=== PATIENT | male | born 1955 | race African-American/Black ===

== ENCOUNTER 2023-03-06 12:51 | Inpatient (IN) | payer MEDICARE ==
[~2023-03-06 12:51] MED LIST: Iopamidol 300 61% 100 ML VIAL FS ONE
[2023-03-06 14:40] LABS: ALT (SGPT) 15 U/L (8-55); AST (SGOT) 77 U/L (5-34); Acetaminophen Less than 10.0 mcg/mL (10.0-30.0); Albumin 4.2 g/dL (3.4-4.8); Alcohol Less than 10 mg/dL (Less than 10); Alkaline Phosphatase 118 U/L (40-110); Anion Gap 26 mmol/L (10-20); BUN (Urea Nitrogen) 11 mg/dL (8.4-25.7); Bilirubin, Total 1.7 mg/dL (0.2-1.2); Calc. Creatinine Clearance 0 mL/min (70-130); Calcium 8.5 mg/dL (7.8-10.44); Carbon Dioxide 29 mmol/L (23-31); Chloride 86 mmol/L (98-107); Estimated GFR 70; Globulin 3.4 g/dL (2.4-3.5); Glucose 109 mg/dL (80-115); Magnesium 1.2 mg/dL (1.6-2.6); Potassium 2.7 mmol/L (3.5-5.1); Protein, Total 7.6 g/dL (5.8-8.1); Salicylate Less than 8.0 mg/dL (15.0-30.0); Sodium 138 mmol/L (136-145)
[2023-03-06 14:52] LABS: Hemoglobin 9.9 g/dL (13.5-17.5); Mean Corpuscular HGB CONC 33.2 g/dL (32.0-36.0); Mean Corpuscular Hemoglobin 25.4 pg (27.0-33.0); Mean Corpuscular Volume 76.4 fl (81.2-95.1); Mean Platelet Volume 8.8 fl (7.4-10.4); Platelet Count 185 10x3/uL (150-450); RBC Distribution Width 15.2 % (11.5-14.5); White Blood Cell (WBC) Count 5.7 10x3/uL (3.5-10.5)
[2023-03-06 15:12] LABS: Band 6 % (5-11); Lymphocytes 23 % (21-51); Monocytes 14 % (0-10); Nucleated RBC (Manual Ct) 1 % (0); Reactive Lymphocytes 1 % (0-10)
[2023-03-06 15:13] LABS: Hypochromia SLIGHT = 6-15 cells (100X) (0-5/hpf); Neutrophil 54 % (42-75); Target Cells SLIGHT = 2-5 cells (100X) (0-1/hpf)
[2023-03-06] MEDS ORDERED: Lorazepam 2 MG/ML VIAL ONE ×2 (15:13→18:18)
[2023-03-06] MEDS ORDERED: Magnesium 2 GM/50 ML BAG (IN WATER) ONE ×2 (15:13→18:18)
[2023-03-06 15:14] LABS: Anisocytosis SLIGHT = 6-15 cells (100X) (0-5/hpf); Microcytosis SLIGHT = 6-15 cells (100X) (0-5/hpf)
[2023-03-06 15:15] LABS: Platelet Morphology Comment Appears Adequate
[2023-03-06 15:16] LABS: Pappenheimer Bodies SLIGHT = 1-2 cells (100X) (None Seen)
[2023-03-06 15:17] LABS: Tear Drops SLIGHT = 2-5 cells (100X) (0-1/hpf)
[2023-03-06 15:18] LABS: MDiff Complete? YES
[2023-03-06] MEDS ORDERED: Ondansetron ODT 4 MG TAB PO PRN (17:15)
[2023-03-06] MEDS ORDERED: Lorazepam 1 MG TAB PO PRN (17:15)
[2023-03-06] MEDS ORDERED: Lorazepam 2 MG/ML VIAL IM PRN (17:15)
[2023-03-06] MEDS ORDERED: Electrolyte Replacement Protocol 1 EACH FS SCH (17:15)
[2023-03-06 17:54] LABS: Troponin I 0.107 ng/mL (< 0.028)
[2023-03-06] MEDS ORDERED: Magnesium 2 GM/50 ML(in water) 2 GM in Premix Bag 1 BAG IVPB SCH (18:00)
[2023-03-06] MEDS ORDERED: Thiamine HCl 200 MG/2 ML VIAL ONE (18:17)
[2023-03-06] MEDS ORDERED: Potassium Chloride 20 MEQ TAB ONE (18:17)
[2023-03-06] MEDS: Lorazepam 1 MG TAB PO SCH ×2 (18:25→23:17)
[2023-03-06] MEDS: Thiamine HCl 200 MG/2 ML VIAL SLOW IVP SCH (18:25)
[2023-03-06] MEDS: Potassium Chloride 20 MEQ TAB PO SCH ×2 (18:26→22:07)
[2023-03-06 22:49] VITALS: BMI 24.5
[2023-03-07 05:25] LABS: Hemoglobin 9.2 g/dL (13.5-17.5); Mean Corpuscular HGB CONC 32.5 g/dL (32.0-36.0); Mean Corpuscular Volume 76.9 fl (81.2-95.1); Mean Platelet Volume 9.5 fl (7.4-10.4); Platelet Count 170 10x3/uL (150-450); RBC Distribution Width 15.2 % (11.5-14.5); Red Blood Cell (RBC) Count 3.68 10x6/uL (4.32-5.72); White Blood Cell (WBC) Count 4.5 10x3/uL (3.5-10.5)
[2023-03-07] MEDS: Lorazepam 1 MG TAB PO SCH ×4 (05:26→23:07)
[2023-03-07 05:30] LABS: ALT (SGPT) 11 U/L (8-55); AST (SGOT) 50 U/L (5-34); Albumin 3.5 g/dL (3.4-4.8); Alkaline Phosphatase 97 U/L (40-110); Anion Gap 18 mmol/L (10-20); BUN (Urea Nitrogen) 10 mg/dL (8.4-25.7); Bilirubin, Total 1.2 mg/dL (0.2-1.2); Calc. Creatinine Clearance 76 mL/min (70-130); Calcium 8.1 mg/dL (7.8-10.44); Carbon Dioxide 32 mmol/L (23-31); Chloride 90 mmol/L (98-107); Estimated GFR 77; Globulin 2.9 g/dL (2.4-3.5); Glucose 140 mg/dL (80-115); Potassium 3.4 mmol/L (3.5-5.1); Protein, Total 6.4 g/dL (5.8-8.1); Sodium 137 mmol/L (136-145)
[2023-03-07 05:49] LABS: MDiff Complete? YES
[2023-03-07 05:54] LABS: Eosinophils 3 % (0-10); Lymphocytes 23 % (21-51); Monocytes 19 % (0-10); Neutrophil 55 % (42-75)
[2023-03-07 05:55] LABS: Anisocytosis SLIGHT = 6-15 cells (100X) (0-5/hpf)
[2023-03-07 05:56] LABS: Hypochromia MODERATE=16-30 cells (100X) (0-5/hpf); Microcytosis SLIGHT = 6-15 cells (100X) (0-5/hpf); Platelet Morphology Comment Appears Adequate; Target Cells SLIGHT = 2-5 cells (100X) (0-1/hpf); Tear Drops SLIGHT = 2-5 cells (100X) (0-1/hpf)
[2023-03-07] MEDS ORDERED: Magnesium 2 GM/50 ML(in water) 2 GM in Premix Bag 1 BAG IVPB SCH (06:00)
[2023-03-07] MEDS ORDERED: Potassium Chloride 20 MEQ TAB PO SCH (08:00)
[2023-03-07] MEDS: Folic Acid 1 MG TAB PO SCH (08:09)
[2023-03-07] MEDS: Multivit, Therapeutic 1 TAB PO SCH (08:09)
[2023-03-07] MEDS: PHOS-NAK 1 PKT PACK PO SCH ×2 (08:09→11:54)
[2023-03-07 09:14] LABS: Troponin I 0.091 ng/mL (< 0.028)
[2023-03-07] MEDS: Thiamine HCl 200 MG/2 ML VIAL SLOW IVP SCH (17:05)
[2023-03-07] MEDS ORDERED: Lorazepam 1 MG TAB PO PRN (17:16)
[2023-03-07] MEDS: Simvastatin 10 MG TAB PO SCH (21:15)
[2023-03-08 04:30] LABS: Hemoglobin 9.8 g/dL (13.5-17.5); Mean Corpuscular HGB CONC 32.7 g/dL (32.0-36.0); Mean Corpuscular Volume 76.5 fl (81.2-95.1); Mean Platelet Volume 9.4 fl (7.4-10.4); Platelet Count 199 10x3/uL (150-450); RBC Distribution Width 15.4 % (11.5-14.5); Red Blood Cell (RBC) Count 3.92 10x6/uL (4.32-5.72); White Blood Cell (WBC) Count 4.5 10x3/uL (3.5-10.5)
[2023-03-08 04:42] LABS: ALT (SGPT) 10 U/L (8-55); AST (SGOT) 53 U/L (5-34); Albumin 3.6 g/dL (3.4-4.8); Alkaline Phosphatase 94 U/L (40-110); Anion Gap 17 mmol/L (10-20); BUN (Urea Nitrogen) 7 mg/dL (8.4-25.7); Bilirubin, Total 1.1 mg/dL (0.2-1.2); Calc. Creatinine Clearance 90 mL/min (70-130); Calcium 8.8 mg/dL (7.8-10.44); Carbon Dioxide 31 mmol/L (23-31); Chloride 92 mmol/L (98-107); Estimated GFR 93; Glucose 113 mg/dL (80-115); Magnesium 1.8 mg/dL (1.6-2.6); Phosphorus 2.3 mg/dL (2.3-4.7); Potassium 3.8 mmol/L (3.5-5.1); Protein, Total 6.6 g/dL (5.8-8.1); Sodium 136 mmol/L (136-145)
[2023-03-08] MEDS: Lorazepam 1 MG TAB PO SCH ×3 (05:01→17:55)
[2023-03-08 05:06] LABS: Iron 49 ug/dL (65-175); Iron Binding Capacity, Total 173 mcg/dL (261-462)
[2023-03-08 05:12] LABS: MDiff Complete? YES
[2023-03-08 05:16] LABS: Band 2 % (5-11); Eosinophils 1 % (0-10); Lymphocytes 33 % (21-51); Monocytes 17 % (0-10); Neutrophil 47 % (42-75)
[2023-03-08 05:17] LABS: Hypochromia SLIGHT = 6-15 cells (100X) (0-5/hpf); Platelet Morphology Comment Appears Adequate
[2023-03-08] MEDS ORDERED: Magnesium 2 GM/50 ML(in water) 2 GM in Premix Bag 1 BAG IVPB SCH (09:00)
[2023-03-08] MEDS: Folic Acid 1 MG TAB PO SCH (09:21)
[2023-03-08] MEDS: Losartan Potassium 50 MG TAB PO SCH (09:21)
[2023-03-08] MEDS: Amlodipine 10 MG TAB PO SCH (09:21)
[2023-03-08] MEDS: Multivit, Therapeutic 1 TAB PO SCH (09:21)
[2023-03-08] MEDS ORDERED: Lorazepam 1 MG TAB PO PRN (17:16)
[2023-03-08] MEDS: Thiamine HCl 200 MG/2 ML VIAL SLOW IVP SCH (17:53)
[2023-03-08] MEDS: Lorazepam 0.5 MG TAB PO SCH ×2 (17:57→23:28)
[2023-03-08] MEDS: Simvastatin 10 MG TAB PO SCH (20:20)
[2023-03-09] MEDS: Lorazepam 0.5 MG TAB PO SCH ×2 (05:14→16:44)
[2023-03-09 05:24] LABS: Hemoglobin 9.7 g/dL (13.5-17.5); Mean Corpuscular HGB CONC 32.4 g/dL (32.0-36.0); Mean Corpuscular Volume 77.1 fl (81.2-95.1); Mean Platelet Volume 9.3 fl (7.4-10.4); Platelet Count 216 10x3/uL (150-450); RBC Distribution Width 15.5 % (11.5-14.5); Red Blood Cell (RBC) Count 3.88 10x6/uL (4.32-5.72); White Blood Cell (WBC) Count 4.6 10x3/uL (3.5-10.5)
[2023-03-09 05:25] LABS: MDiff Complete? YES
[2023-03-09 05:53] LABS: ALT (SGPT) 19 U/L (8-55); AST (SGOT) 102 U/L (5-34); Albumin 3.5 g/dL (3.4-4.8); Alkaline Phosphatase 100 U/L (40-110); Anion Gap 17 mmol/L (10-20); BUN (Urea Nitrogen) 8 mg/dL (8.4-25.7); Calc. Creatinine Clearance 68 mL/min (70-130); Carbon Dioxide 29 mmol/L (23-31); Chloride 95 mmol/L (98-107); Estimated GFR 67; Glucose 113 mg/dL (80-115); Magnesium 2.1 mg/dL (1.6-2.6); Potassium 3.1 mmol/L (3.5-5.1); Protein, Total 6.5 g/dL (5.8-8.1); Sodium 138 mmol/L (136-145)
[2023-03-09 05:58] LABS: Eosinophils 2 % (0-10); Lymphocytes 37 % (21-51); Monocytes 15 % (0-10); Neutrophil 45 % (42-75)
[2023-03-09 05:59] LABS: Anisocytosis SLIGHT = 6-15 cells (100X) (0-5/hpf); Hypochromia SLIGHT = 6-15 cells (100X) (0-5/hpf); Platelet Morphology Comment Appears Adequate; Polychromasia SLIGHT = 2-3 cells (100X) (0-2/hpf); Target Cells SLIGHT = 2-5 cells (100X) (0-1/hpf)
[2023-03-09 06:00] LABS: Ovalocytes SLIGHT = 2-5 cells (100X) (0-1/hpf)
[2023-03-09] MEDS ORDERED: Sodium Chloride 0.9% 500 ML IV SCH ×2 (07:45→11:45)
[2023-03-09] MEDS ORDERED: Potassium Chloride 20 MEQ TAB PO SCH (09:00)
[2023-03-09] MEDS: Losartan Potassium 50 MG TAB PO SCH (09:03)
[2023-03-09] MEDS: Amlodipine 10 MG TAB PO SCH (09:03)
[2023-03-09] MEDS: Folic Acid 1 MG TAB PO SCH (09:03)
[2023-03-09] MEDS: Multivit, Therapeutic 1 TAB PO SCH (09:03)
[2023-03-09] MEDS: Sodium Chloride 0.9% 1,000 ML IV SCH ×2 (12:47→23:00)
[2023-03-09] MEDS: Thiamine 100 MG TAB PO SCH (16:44)
[2023-03-09] MEDS ORDERED: Lorazepam 0.5 MG TAB PO PRN (17:16)
[2023-03-09] MEDS: Simvastatin 10 MG TAB PO SCH (21:31)
[2023-03-10 04:46] LABS: Hemoglobin 9.1 g/dL (13.5-17.5); Mean Corpuscular HGB CONC 31.9 g/dL (32.0-36.0); Mean Corpuscular Hemoglobin 24.7 pg (27.0-33.0); Mean Corpuscular Volume 77.4 fl (81.2-95.1); Mean Platelet Volume 8.9 fl (7.4-10.4); Platelet Count 249 10x3/uL (150-450); Red Blood Cell (RBC) Count 3.68 10x6/uL (4.32-5.72); White Blood Cell (WBC) Count 4.4 10x3/uL (3.5-10.5)
[2023-03-10 04:47] LABS: MDiff Complete? YES
[2023-03-10 05:01] LABS: ALT (SGPT) 26 U/L (8-55); AST (SGOT) 117 U/L (5-34); Albumin 3.3 g/dL (3.4-4.8); Alkaline Phosphatase 86 U/L (40-110); Anion Gap 15 mmol/L (10-20); BUN (Urea Nitrogen) 7 mg/dL (8.4-25.7); Bilirubin, Total 0.7 mg/dL (0.2-1.2); Calc. Creatinine Clearance 79 mL/min (70-130); Calcium 8.5 mg/dL (7.8-10.44); Carbon Dioxide 25 mmol/L (23-31); Chloride 103 mmol/L (98-107); Estimated GFR 81; Globulin 2.8 g/dL (2.4-3.5); Glucose 114 mg/dL (80-115); Potassium 3.4 mmol/L (3.5-5.1); Protein, Total 6.1 g/dL (5.8-8.1); Sodium 140 mmol/L (136-145)
[2023-03-10 05:36] LABS: Anisocytosis SLIGHT = 6-15 cells (100X) (0-5/hpf); Eosinophils 1 % (0-10); Hypochromia SLIGHT = 6-15 cells (100X) (0-5/hpf); Lymphocytes 32 % (21-51); Microcytosis SLIGHT = 6-15 cells (100X) (0-5/hpf); Monocytes 15 % (0-10); Neutrophil 52 % (42-75); Target Cells SLIGHT = 2-5 cells (100X) (0-1/hpf)
[2023-03-10 05:37] LABS: Platelet Morphology Comment Appears Adequate
[2023-03-10] MEDS: Sodium Chloride 0.9% 1,000 ML IV SCH ×2 (07:25→08:57)
[2023-03-10] MEDS: Multivit, Therapeutic 1 TAB PO SCH (08:56)
[2023-03-10] MEDS: Folic Acid 1 MG TAB PO SCH (08:57)
[2023-03-10] MEDS ORDERED: Potassium Chloride 20 MEQ TAB PO SCH (09:00)
[2023-03-10] MEDS ORDERED: Losartan 25 MG TAB PO SCH (16:15)
[2023-03-10 16:21] VITALS: BP 169/89; TEMP 98.7
[2023-03-10] MEDS: Thiamine 100 MG TAB PO SCH (17:30)
== END 2023-03-10 18:50 | disposition home or self-care (01) | DRG 897 ==
LOC: CSHERS 12:51 → SUATTDRO 12:51 → CSHERHOLD 17:48 → OBSVTOIN 17:49 → CSHTELE 20:53
PROVIDERS: ADMIT Family Medicine; ATTEND Internal Medicine
DX: F10.139 Alcohol abuse with withdrawal, unspecified (principal); E78.5 Hyperlipidemia, unspecified; I10 Essential (primary) hypertension; D64.9 Anemia, unspecified; F12.10 Cannabis abuse, uncomplicated; Z88.8 Allergy status to other drugs, medicaments and biological substances; Z79.899 Other long term (current) drug therapy; F17.210 Nicotine dependence, cigarettes, uncomplicated; E83.42 Hypomagnesemia; E87.6 Hypokalemia; I95.1 Orthostatic hypotension
CPT/HCPCS: 36415; 70450; 70551; 74177; 80053; 80307; 82533; 82553; 82728; 83540; 83550; 83735; 84100; 84443; 84484; 85025; 93005; 93306; 93880; 94760; 96361; 96365; 96375; J1650; J2060; J3411; J3475; J7030; J7050; Q9967